=== PATIENT | male | born 1990 | race Hispanic/Latino ===

== ENCOUNTER 2019-11-14 17:14 | Emergency (ER) | payer OTHER | END 2019-11-14 18:59 | disposition home or self-care (01) | LOC: ERS 17:14 | DX: R05 Cough (principal); R53.83 Other fatigue; R50.9 Fever, unspecified | CPT/HCPCS: 99283 ==

== ENCOUNTER 2019-12-19 15:33 | Outpatient (CLI) | payer OTHER ==
--- NOTE | 2019-12-19 16:29 | RAD ---
TWO VIEW CHEST: History: Dyspnea. Chest pain. FINDINGS: Lung ny are clear. No evidence of infiltrative or vascular congestion. Heart size normal. Mediast inum unremarkable. Osseous structures unremarkable. IMPRESSION: Unremarkable chest. POS: [id number]
== END 2019-12-19 15:34 | disposition home or self-care (01) ==
LOC: BICRAD 15:33
PROVIDERS: ATTEND Family Medicine
DX: J40 Bronchitis, not specified as acute or chronic (principal); R07.9 Chest pain, unspecified; R06.00 Dyspnea, unspecified
CPT/HCPCS: 71046

== ENCOUNTER 2025-02-08 08:14 | Outpatient (CLI) | payer OTHER ==
[2025-02-08 09:03] LABS: #Basophils 0.04 10x3/uL (0.0-0.2); #Eosinophils 0.21 10x3/uL (0.0-0.7); #Monocytes 0.62 10x3/uL (0.11-0.59); #Neutrophils 3.43 10x3/uL (1.40-6.50); %Basophils 0.6 % (0.0-1.0); %Eosinophils 3.0 % (0.0-10.0); %Lymphocytes 38.1 % (21.0-51.0); %Monocytes 8.9 % (0.0-10.0); %Neutrophils 49.0 % (42.0-75.0); Hematocrit 43.9 % (42.0-52.0); Hemoglobin 14.9 g/dL (14.0-18.0); Mean Corpuscular Hemoglobin 29.4 pg (27.0-31.0); Mean Corpuscular Volume 86.8 fL (78.0-98.0); Platelet Count 268 10x3/uL (130-400); Red Blood Cell (RBC) Count 5.06 mill/uL (4.70-6.10); White Blood Cell (WBC) Count 7.00 10x3/uL (4.8-10.8)
[2025-02-08 09:15] LABS: Anion Gap 12 mmol/L (10-20); BUN (Urea Nitrogen) 14 mg/dL (8.9-20.6); Calc. Creatinine Clearance 0 mL/min (70-130); Calcium 9.2 mg/dL (7.8-10.44); Carbon Dioxide 28 mmol/L (22-29); Chloride 105 mmol/L (98-107); Glucose 98 mg/dL (70-105); Potassium 4.1 mmol/L (3.5-5.1); Sodium 141 mmol/L (136-145)
[2025-02-08 09:17] LABS: INR-International Normal Ratio 1.0; PTT 29.8 sec (22.9-36.1); Prothrombin Time 13.3 sec (12.0-14.7)
[2025-02-08 12:04] LABS: Bacteria/HPF None Seen HPF (None Seen); Glucose, Urine (Dipstick) Normal (Negative); Leukocyte Negative Leu/uL (Negative); Protein, Urine (Dipstick) Negative (Neg-Trace); RBC/HPF 0-3 HPF (0-3); Specific Gravity, Urine 1.028 (1.002-1.036); WBC/HPF 0-3 HPF (0-3)
== END 2025-02-08 08:15 | disposition home or self-care (01) ==
LOC: LABBT 08:14
PROVIDERS: ATTEND Urology
DX: Z01.818 Encounter for other preprocedural examination (principal); R35.0 Frequency of micturition; Z78.9 Other specified health status
CPT/HCPCS: 80048; 81001; 85025; 85610; 85730; 87077; 87086; 87186; 93005; 93010